=== PATIENT | male | born 1970 | race Caucasian/White ===

== ENCOUNTER → 2016-04-26 | Outpatient (CLI) | payer BC ==
[~2016-04-26] MED LIST: ACETAMINOPHEN-1 EAC1 PO; BUSPAR5 MG PO; CELEXA20 MG PO; CITALOPRAM HBR20 MG PO; CLONAZEPAM0.5 MG PO; HYDROCHLOROTHIA25 MG PO; LAMICTAL100 MG PO; LAMOTRIGINE100 MG PO; LEVAQUIN500 MG PO; LISINOPRIL40 MG PO; METAXALONE800 MG PO; NAPROXEN500 MG PO; PERCOCET 5/31 TABLET PO; PREDNISONE20 MG PO
== END | disposition home or self-care (01) ==
LOC: RAD 14:54
PROC: 0W9G3ZZ Drainage of Peritoneal Cavity, Percutaneous Approach (ICD-10-PCS; principal; 2016-04-26)
DX: R19.00 Intra-abdominal and pelvic swelling, mass and lump, unspecified site (principal); Z98.890 Other specified postprocedural states
CPT/HCPCS: 76942

== ENCOUNTER → 2017-08-09 | Outpatient (CLI) | payer BC ==
[~2017-08-09] MED LIST changes: -CELEXA20 MG PO; +CELEXA40 MG PO; +RELAFEN500 M1 PO
== END | disposition home or self-care (01) ==
LOC: CDC 15:59
DX: Z01.810 Encounter for preprocedural cardiovascular examination (principal)
CPT/HCPCS: 93000

== ENCOUNTER 2017-08-14 13:13 | Day surgery (SDC) | payer BC ==
[~2017-08-14] VITALS: Ht 177.8 cm; Wt 86.2 kg
[2017-08-14 13:47] VITALS: BP 143/90
[2017-08-14 20:05] VITALS: BP 133/77
== END 2017-08-14 20:24 | disposition home or self-care (01) ==
LOC: SDC
DX: M87.051 Idiopathic aseptic necrosis of right femur (principal); I10 Essential (primary) hypertension; F41.9 Anxiety disorder, unspecified; M25.551 Pain in right hip; M54.9 Dorsalgia, unspecified; Z90.49 Acquired absence of other specified parts of digestive tract; Z87.19 Personal history of other diseases of the digestive system; Z88.0 Allergy status to penicillin; Z91.013 Allergy to seafood; Z79.1 Long term (current) use of non-steroidal anti-inflammatories (NSAID)
CPT/HCPCS: 73502; 76000; 85730; J0131; J1100; J1170; J1885; J2405; J3010